=== PATIENT | female | born 1960 | race Caucasian/White ===

== ENCOUNTER 2016-12-11 06:47 | Day surgery (SDC) | payer OTHER ==
[2016-12-08 11:15] VITALS: BMI 25.0
[~2016-12-11 06:47] MED LIST: LEVOFLOXACIN 500 MG PREMIX BAG IVPB ONE
[2016-12-11] MEDS ORDERED: LEVOFLOXACIN 500 MG IVPB 100 ML IVPB ONE (07:42)
[2016-12-11] MEDS ORDERED: MIDAZOLAM HCL 2 MG/2 ML SINGLE DOSE VIAL ONE ×2 (08:13→08:18)
[2016-12-11] MEDS ORDERED: LEVOFLOXACIN 500 MG PREMIX BAG IVPB ONE (08:15)
[2016-12-11] MEDS ORDERED: ONDANSETRON 4 MG/2 ML VIAL IVPUSH PRN (08:59)
[2016-12-11] MEDS ORDERED: oxyCODONE HCL 5 MG TABLET PO PRN (08:59)
[2016-12-11] MEDS ORDERED: PROMETHAZINE HCL 25 MG/1 ML VIAL IVPUSH PRN (08:59)
[2016-12-11] MEDS ORDERED: LACTATED RINGERS SOLUTION 1,000 ML IV SCH (09:00)
--- NOTE | 2016-12-11 09:33 | OP ---
Operative Note - Note: Operative Date: 12/11/16 Pre-Operative Diagnosis: left renal stone Operation: left ESWL Findings: 5mm left mid-pole stone Post-Operative Diagnosis: Same as Pre-op Surgeon: David Betancourt Anesthesia: General Operative Report Dictated: Yes
--- NOTE | 2016-12-11 10:29 | OP ---
DATE OF OPERATION: 12/11/2016 PREOPERATIVE DIAGNOSIS: Left renal stone. POSTOPERATIVE DIAGNOSIS: Left renal stone. PROCEDURE: Left extracorporeal shock-wave lithotripsy. ATTENDING: Jatinder Hou MD ANESTHESIA: General. DESCRIPTION OF PROCEDURE: The patient was brought in the operating room and placed in supine position on the operating room table. Ultrasonography and fluoroscopy were performed. A 5-cm left midpole stone was identified. At this point, general anesthesia was administered, and the patient was given Levaquin preoperatively for surgical prophylaxis. At this point, extracorporeal shock-wave lithotripsy was performed. Then 2500 impulses at 18 J of power were administered to the stone. Excellent fragmentation on real time ultrasonography and fluoroscopy was noted. There were no complications noted. DISPOSITION: To the recovery room. JATINDER HOU M.D. [id number]
[2016-12-11] MEDS ORDERED: ONDANSETRON 4 MG/2 ML VIAL ONE (11:33)
[2016-12-11 12:01] VITALS: TEMP 98.3
[2016-12-11 12:30] VITALS: BP 123/75; PULSE 70
== END 2016-12-11 12:35 | disposition home or self-care (01) ==
LOC: JASU-SURG 06:47
PROVIDERS: ATTEND Urology
PROC: 0TF4XZZ Fragmentation in Left Kidney Pelvis, External Approach (ICD-10-PCS; principal; 2016-12-11 08:00)
DX: N20.0 Calculus of kidney (principal)
CPT/HCPCS: 94760

== ENCOUNTER 2018-06-28 20:11 | Emergency (ER) | payer OTHER ==
--- NOTE | 2018-06-28 20:33 | PDOC ---
Rapid Medical Evaluation Time Seen by Provider: 06/28/18 20:29 Medical Evaluation: Allergies Allergy/AdvReac Type Severity Reaction Status Date / Time No Known Allergies Allergy Verified 12/08/16 11:15 06/28/18 20:31 I have performed a brief in-person evaluation of this patient. The patient presents with a chief complaint of: left sided FUENTES with nausea X 3 days, not relieve with motrin Pertinent physical exam findings:non focal I have ordered the following:basic labs The patient will proceed to the ED for further evaluation. 06/28/18 20:36 Discharge Disposition - Diagnosis Headache Qualifiers: Headache type: unspecified Headache chronicity pattern: acute headache Intractability: not intractable Qualified Code(s): R51 - Headache - Referrals Referrals: Rosy Beltran [Primary Care Provider] - - Patient Instructions - Post Discharge Activity
[2018-06-28 20:35] VITALS: BMI 25.7
--- NOTE | 2018-06-28 21:25 | PDOC ---
Attending Attestation - Resident Resident Name: Maddie Del Rio - HPI HPI: 06/28/18 21:47 The patient is a year old female, with a significant past medical history of migraines and bladder infection, who presents to the emergency department with, 3 days of a left sided headache. As per patient, her headache is similar to her baseline migraines. She describes her headache as left sided radiating from her left eye to left neck with associated nausea with one episode of emesis and blurred vision in the left eye. The patient also endorses decreased sleep over the past 3 days. She reports her headache was unlike her previous headaches due to it not subsiding with Advil or Aleve. She denies recent fevers, chills, or dizziness. She denies recent diarrhea or constipation. She denies recent dysuria, frequency, urgency or hematuria. She denies recent chest pain or shortness of breath. Allergies: NKA Primary Care Physician: Dr. Beltran - Physicial Exam PE: 06/28/18 23:15 GENERAL: Awake, alert, and fully oriented, in no acute distress HEAD: No signs of trauma EYES: PERRLA, EOMI, sclera anicteric, conjunctiva clear ENT: Auricles normal inspection, hearing grossly normal, nares patent, oropharynx clear without exudates. Moist mucosa NECK: Normal ROM, supple, no lymphadenopathy, JVD, or masses LUNGS: Breath sounds equal, clear to auscultation bilaterally. No wheezes, and no crackles HEART: Regular rate and rhythm, normal S1 and S2, no murmurs, rubs or gallops ABDOMEN: Soft, nontender, normoactive bowel sounds. No guarding, no rebound. No masses EXTREMITIES: Normal range of motion, no edema. No clubbing or cyanosis. No cords, erythema, or tenderness NEUROLOGICAL: Alert, awake, appropriate. Cranial nerves 2-12 intact. No deficits to light touch and temperature in face, upper extremities and lower extremities. No motor deficits in the in face, upper extremities and lower extremities. No pronator drift. Normoreflexic in the upper and lower extremities. Normal speech. Toes are down-going bilaterally. SKIN: Warm, Dry, normal turgor, no rashes or lesions noted. <Steffanie Zarate - Last Filed: 06/28/18 23:13> - ED Attending Attestation I have performed the following: I have examined & evaluated the patient, The case was reviewed & discussed with the resident, I agree w/resident's findings & plan - Medical Decision Making 06/28/18 23:11 Pt's exam normal; labs normal; neuro exam normal; vitals normal, head CT exam normal. Pt's FUENTES resolved in the ER with treatment. She will be discharged and asked to follow with PMD. She will be referred to the neurologist director of undergraduate admissions. <Michelle Deleon - Last Filed: 06/28/18 23:17> Attestations - Attestations 06/28/18 21:47 Documentation prepared by Steffanie Zarate, acting as medical technician assistant for Michelle Deleon MD. <Steffanie Zarate - Last Filed: 06/28/18 23:13>
[2018-06-28] MEDS ORDERED: METOCLOPRAMIDE HCL INJECTION 10 MG/2 ML VIAL IVPUSH ONE (21:26)
[2018-06-28] MEDS ORDERED: ACETAMINOPHEN 1000 MG/100 ML VIAL (NON FORMULARY) IVPB ONE (21:27)
--- NOTE | 2018-06-28 21:38 | PDOC ---
History of Present Illness <Michelle Deleon - Last Filed: 06/28/18 23:13> - General History Source: Patient, Family (daughter) Exam Limitations: Language Barrier - History of Present Illness Initial Comments: 06/28/18 21:34 Pt's daughter translated Pt is a 58yo f with PMH of migraines and "bladder inflammation" presenting to ED with complaint of L sided FUENTES for 3 day. Pt says she has had similar headaches like this in the past, but the only difference is that the pain is not relieved with Aleve/Advil. Pain is intermittent, goes from the L eye to the back of the neck on the left side. She also says there is a burning sensation in her scalp. She admits to nausea, blurry eye vision, dizziness when the pain intensifies and she had one episode of emesis this AM. Pain is not worse in the morning. She denies fever, chills, chest pain, SOB, lightheadedness, abdominal pain, joint pain, neck stiffness. No recent illnesses. PMH: see hpi PSH: hysterectomy Meds: Elmiron Allergies: nkda Social: denies PCP: Ruby <Maddie Del Rio - Last Filed: 06/28/18 23:48> - General Chief Complaint: Headache Stated Complaint: HEADACHE, NAUSEA Time Seen by Provider: 06/28/18 20:29 Past History <Michelle Deleon - Last Filed: 06/28/18 23:13> - Past Medical History Anemia: No Asthma: No Cancer: No Cardiac Disorders: No CVA: No COPD: No CHF: No Dementia: No Diabetes: No GI Disorders: No Disorders: Yes (KIDNEY STONES) HTN: No Hypercholesterolemia: No Liver Disease: No Seizures: No Thyroid Disease: No - Suicide/Smoking/Psychosocial Hx Smoking History: Never smoked Have you smoked in the past 12 months: No Information on smoking cessation initiated: No Hx Alcohol Use: No Drug/Substance Use Hx: No Substance Use Type: None <Maddie Del Rio - Last Filed: 06/28/18 23:48> - Past Medical History Allergies/Adverse Reactions: Allergies Allergy/AdvReac Type Severity Reaction Status Date / Time No Known Allergies Allergy Verified 12/08/16 11:15 Home Medications: Ambulatory Orders Pentosan Polysulfate Sodium [Elmiron] 100 mg PO TID 12/08/16 Review of Systems - Review of Systems Constitutional: Yes: Symptoms Reported. No: Chills, Diaphoresis, Fever, Loss of Appetite, Weakness HEENTM: Yes: Blurred Vision (L eye). No: Tearing, Double Vision, Nose Pain, Nose Congestion, Tinnitus Respiratory: No: Cough, Shortness of Breath Cardiac (ROS): No: Chest Pain, Lightheadedness, Palpitations, Syncope ABD/GI: Yes: Nausea, Vomiting. No: Constipated, Abdominal cramping : No: Burning, Dysuria Musculoskeletal: Yes: Neck Pain. No: Back Pain, Joint Pain, Muscle Pain, Muscle Weakness Neurological: Yes: Headache, Paresthesia (in scalp). No: Numbness, Tingling, Unsteady Gait <Maddie Del Rio - Last Filed: 06/28/18 23:48> *Physical Exam - Vital Signs Last Vital Signs Temp Pulse Resp BP Pulse Ox 98.6 F 64 17 123/75 99 06/28/18 20:31 06/28/18 20:31 06/28/18 20:31 06/28/18 20:31 06/28/18 20:31 <Michelle Deleon - Last Filed: 06/28/18 23:13> - Vital Signs Last Vital Signs Temp Pulse Resp BP Pulse Ox 98.6 F 64 17 123/75 99 06/28/18 20:31 06/28/18 20:31 06/28/18 20:31 06/28/18 20:31 06/28/18 20:31 - Physical Exam General Appearance: Yes: Nourished, Appropriately Dressed. No: Apparent Distress HEENT: positive: EOMI, JESUS, Normal ENT Inspection, TMs Normal, Pharynx Normal, Hearing Grossly Normal, Other (vision 20/25 in both eyes). negative: Photophobia, Pharyngeal Erythema, Nasal Congestion, Sinus Tenderness Neck: positive: Trachea midline, Supple. negative: Decreased range of motion, Lymphadenopathy (R), Lymphadenopathy (L) Respiratory/Chest: positive: Lungs Clear, Normal Breath Sounds. negative: Crackles, Rales, Rhonchi, Wheezing Cardiovascular: positive: Regular Rhythm, Regular Rate. negative: Edema, JVD, Murmur Vascular Pulses: Carotid (R): 2+, Carotid (L): 2+, Dorsalis-Pedis (R): 2+, Doralis-Pedis (L): 2+ Gastrointestinal/Abdominal: positive: Normal Bowel Sounds, Soft. negative: Tender, Distended, Guarding, Rebound, Tenderness Musculoskeletal: positive: Normal Inspection. negative: CVA Tenderness Extremity: positive: Normal Capillary Refill Integumentary: positive: Normal Color, Dry, Warm Neurologic: positive: mortgage counselor II-XII NML intact, Fully Oriented, Alert, Normal Mood/ Affect, Normal Response, Motor Strength 5/5 Deep Tendon Reflexes: Ankle (L): 2+, Ankle (R): 2+, Knee (L): 2+, Knee (R): 2+, Bicep (L): 2+, Bicep (R): 2+ <Maddie Del Rio - Last Filed: 06/28/18 23:48> ED Treatment Course - LABORATORY CBC & Chemistry Diagram: 06/28/18 22:06 06/28/18 22:06 - ADDITIONAL ORDERS Additional order review: Laboratory Results 06/28/18 06/28/18 22:06 22:06 PTT (Actin FS) 29.7 Sodium 143 Potassium 4.6 Chloride 110 H Carbon Dioxide 25 Anion Gap 8 BUN 11 Creatinine 0.6 Creat Clearance w eGFR > 60 Random Glucose 94 Calcium 9.1 Total Bilirubin 0.3 AST 18 ALT 28 Alkaline Phosphatase 47 Total Protein 8.0 Albumin 3.9 06/28/18 22:06 RBC 4.75 MCV 85.8 MCHC 33.5 RDW 15.1 MPV 10.2 - RADIOLOGY Radiology Studies Ordered: Category Date Time Status HEAD CT WITHOUT CONTRAST [CT] Stat CT Scan 06/28/18 21:13 Completed - Medications Given in the ED: ED Medications Discontinued Medications Generic Name Dose Route Start Last Admin Trade Name Freq PRN Reason Stop Dose Admin Acetaminophen 1,000 mg 06/28/18 21:27 06/28/18 22:33 Ofirmev Injection - IVPB 06/28/18 21:28 1,000 mg ONCE ONE Administration Diphenhydramine HCl 25 mg 06/28/18 21:26 06/28/18 22:33 Benadryl Injection - IVPB 06/28/18 21:27 25 mg ONCE ONE Administration Metoclopramide HCl 10 mg 06/28/18 21:26 06/28/18 22:33 Reglan Injection - IVPUSH 06/28/18 21:27 10 mg ONCE ONE Administration <Michelle Deleon - Last Filed: 06/28/18 23:13> - LABORATORY CBC & Chemistry Diagram: 06/28/18 22:06 06/28/18 22:06 <Maddie Del Rio - Last Filed: 06/28/18 23:48> Medical Decision Making - Medical Decision Making 06/28/18 23:44 t is a 58yo f with PMH of migraines and "bladder inflammation" presenting to ED with complaint of L sided FUENTES for 3 day. DDx: SAH, GCA, mass leison, low suspicion for: -no temporal tenderness <Maddie Del Rio - Last Filed: 06/28/18 23:48> *DC/Admit/Observation/Transfer - Discharge Dispostion Decision to Admit order: No <Michelle Deleon - Last Filed: 06/28/18 23:13> <Maddie Del Rio - Last Filed: 06/28/18 23:48> Diagnosis at time of Disposition: Headache Qualifiers: Headache type: unspecified Headache chronicity pattern: acute headache Intractability: not intractable Qualified Code(s): R51 - Headache - Discharge Dispostion Disposition: HOME Condition at time of disposition: Improved - Referrals Referrals: Rosy Beltran [Primary Care Provider] - Maggy Cantu MD [Staff Physician] - - Patient Instructions Printed Discharge Instructions: Easing a Headache the Natural Way, Tension Headache Additional Instructions: You were seen here today because you were having headache. We did labs and a CT. Everything was normal. The most likely cause of your headache is migraine. Please follow up with Dr. Beltran within the next week. Please come back to the ED if: headache gets worse, you develop changes in vision, you start having more episodes of vomiting, if you develop fever or if any new concerning symptom develops. Thank you Print Language: KINYARWANDA - Post Discharge Activity
[2018-06-28] MEDS ORDERED: METOCLOPRAMIDE HCL INJECTION 10 MG/2 ML VIAL ONE (22:16)
[2018-06-28] MEDS ORDERED: ACETAMINOPHEN INJECTION 100 ML IVPB ONE (22:16)
[2018-06-28 22:17] LABS: HEMATOCRIT 40.8 % (32.4-45.2); HEMOGLOBIN 13.7 GM/dL (10.7-15.3); MCH 28.7 pg (25.7-33.7); MCHC 33.5 g/dl (32.0-36.0); MEAN CELL VOLUME 85.8 fl (80-96); MEAN PLT VOLUME 10.2 fl (7.5-11.1); PLATELET COUNT 231 K/MM3 (134-434); RBC 4.75 M/mm3 (3.60-5.2); RDW 15.1 % (11.6-15.6); WHITE BLOOD COUNT 10.8 K/mm3 (4.0-10.0)
[2018-06-28 22:38] LABS: ALBUMIN 3.9 g/dl (3.4-5.0); ALK PHOS 47 U/L (45-117); ANION GAP 8 MMOL/L (8-16); BILIRUBIN,TOTAL 0.3 mg/dL (0.2-1.0); BLOOD UREA NITROGEN 11 mg/dL (7-18); CALCIUM 9.1 mg/dL (8.5-10.1); CHLORIDE 110 mmol/L (98-107); CO2 25 mmol/L (21-32); CREATININE 0.6 mg/dL (0.55-1.02); GLUCOSE,RANDOM 94 mg/dL (74-106); POTASSIUM 4.6 mmol/L (3.5-5.1); SGOT/AST 18 U/L (15-37); SGPT/ALT 28 U/L (12-78); SODIUM 143 mmol/L (136-145)
[2018-06-28 22:44] LABS: INR 1.26 (0.83-1.09); PROTHROMBIN TIME (PATIENT) 14.2 SEC (9.7-13.0)
[2018-06-28 23:54] VITALS: BP 110/78; PULSE 89; TEMP 98.5
== END 2018-06-28 23:51 | disposition home or self-care (01) ==
LOC: JER 20:11
PROC: 3E033NZ Introduction of Analgesics, Hypnotics, Sedatives into Peripheral Vein, Percutaneous Approach (ICD-10-PCS; principal; 2018-06-28)
PROC: 3E033GC Introduction of Other Therapeutic Substance into Peripheral Vein, Percutaneous Approach (ICD-10-PCS; 2018-06-28)
PROC: 3E033GC Introduction of Other Therapeutic Substance into Peripheral Vein, Percutaneous Approach (ICD-10-PCS; 2018-06-28)
DX: R51 Headache (principal); G43.909 Migraine, unspecified, not intractable, without status migrainosus
CPT/HCPCS: 36415; 70450-TC; 80053; 85027; 85610; 85730; 96374; 96375; 99282-25; J0131

== ENCOUNTER 2019-03-06 22:28 | Emergency (ER) | payer OTHER ==
[2019-03-06] MEDS ORDERED: SODIUM CHLORIDE 0.9% 500 ML INFUS.BAG IV ONE (23:26)
[2019-03-06] MEDS ORDERED: ACETAMINOPHEN 1000 MG/100 ML VIAL (NON FORMULARY) IVPB ONE (23:26)
[2019-03-06] MEDS ORDERED: METOCLOPRAMIDE HCL INJECTION 10 MG/2 ML VIAL IVPUSH ONE (23:26)
[2019-03-06 23:41] VITALS: TEMP 100.7; BMI 43.7
--- NOTE | 2019-03-06 23:55 | PDOC ---
History of Present Illness - General Stated Complaint: BCK PAIN/HEADACHE Time Seen by Provider: 03/06/19 23:03 - History of Present Illness Initial Comments: Beth Junior is a 58yo Macedonian-speaking woman with a PMH of migraine FUENTES, chronic bladder inflammation, chronic back pain (daughter reports herniated discs and sciatica) who presents with severe bilateral low back pain that radiates down both legs. She also reports "numbness" in her legs, though she is able to still feel sensation; she is unable to clarify what she means by numbness. She says that she often has back pain, but the pain is very severe today. She was having difficulty walking, and has not been eating today secondary to the severe pain. Later in the day, she also started to develop a left-sided headache with associated nausea, episode of vomiting, and photophobia typical of her normal migraine headaches. She did not take any pain medication for either the back pain or the headache due to the nausea. Ms Shaver reports that she was seen by orthopedics for her back pain and was told that "nothing is wrong" with her back. She does not take any medication for her back pain normally, and she does not follow up with anyone regarding the pain. She also does not see a specialist for her migraine headaches, though she reports an unknown prescription medication that did help. She denies any recent fevers, though she has felt chilled today, no congestion, no cough, no constipation/diarrhea. She reports urinary urgency that has been present for "a really long time" but no dysuria. Past History - Past Medical History Allergies/Adverse Reactions: Allergies Allergy/AdvReac Type Severity Reaction Status Date / Time No Known Allergies Allergy Verified 12/08/16 11:15 Home Medications: Ambulatory Orders Pentosan Polysulfate Sodium [Elmiron] 100 mg PO TID 12/08/16 Anemia: No Asthma: No Cancer: No Cardiac Disorders: No CVA: No COPD: No CHF: No Dementia: No Diabetes: No GI Disorders: No Disorders: Yes (KIDNEY STONES) HTN: No Hypercholesterolemia: No Liver Disease: No Seizures: No Thyroid Disease: No - Suicide/Smoking/Psychosocial Hx Smoking History: Never smoked Have you smoked in the past 12 months: No Information on smoking cessation initiated: No Hx Alcohol Use: No Drug/Substance Use Hx: No Substance Use Type: None Review of Systems - Review of Systems Comments:: General: No fevers, no chills, no weight or appetite change, no malaise HEENT: No changes in vision, no changes in hearing, no congestion, no sore throat, +FUENTES CV: No chest pain, no palpitations, no LE edema Pulm: No SOB, no cough, no wheezing GI: No nausea or vomiting, no change in bowel habits, no melena : No frequency, + chronic urgency, no dysuria Musc: + chronic back pain, no joint swelling, no recent injury Skin: No rash, no lesions, no erythema Endo: No excessive thirst, no heat/cold intolerance Heme: No unusual bruising or bleeding, no swollen glands Neuro: No syncope, no numbness/tingling, no focal weakness Vasc: No claudication Psych: No recent change in mood, no SI or HI *Physical Exam - Vital Signs Last Vital Signs Temp Pulse Resp BP Pulse Ox 100.7 F H 87 20 128/79 98 03/06/19 22:35 03/06/19 22:35 03/06/19 22:35 03/06/19 22:35 03/06/19 22:35 - Physical Exam Comments: General: Uncomfortable but in no acute distress HEENT: Atraumatic, PERRL, EOMI, MMM, voice normal, normal neck ROM, no LAD Cards: RRR, no murmur appreciated Pulm: Comfortable on room air, clear to auscultation bilaterally Abd: Soft, nontender, nondistended : No CVA tenderness Back: Diffuse TTP in low thoracic/lumbar/sacral spine, lateral more than midline. No swelling, no wounds, no ecchymosis, no abrasions, no erythema, no warmth. Ext: Atraumatic. No LE edema. ROM intact. Strength 5/5 and equal bilaterally Vasc: Extremities WWP. Skin: Normal color, no rashes or lesions Neuro: A&Ox3, CN grossly intact, normal speech, sensation to light touch intact in bilateral upper and lower extremities Psych: Mood appropriate to situation ED Treatment Course - LABORATORY CBC & Chemistry Diagram: 03/07/19 00:00 03/07/19 00:00 Medical Decision Making - Medical Decision Making 03/06/19 23:54 Beth Junior is a 58yo Macedonian-speaking woman with a PMH of migraine FUENTES, chronic bladder inflammation, chronic back pain who presents with worsening of her chronic back pain w/ radiation down both legs as well as left- sided headache, nausea, vomiting, and photophobia that she typically experiences with a migraine headache. - Pain most likely due to her chronic conditions. No neurological symptoms reported nor on exam, FUENTES sympotms the same as her typical migraines. No recent back procedures, no overlying erythema or warmth suggesting infection. With h/o urinary urgency, will evaluate for UTI v pyelonephritis as a cause of her back pain - CBC, CMP, UA, UCx - 1L IVF, IV acetaminophen, reglan for symptoms 03/06/19 23:58 - Vitals checked at bedside, oral temp 100.7 - Septic workup ordered - Some concern for possible meningitis. Will evaluate for other causes of infection initially, especially UTI, but may need LP. 03/07/19 00:44 - Pt signed out to Dr Peres for remainder of ED workup. Discussed with Dr Abad. Aminah Zacarias PGY1 *DC/Admit/Observation/Transfer Diagnosis at time of Disposition: Back pain, Headache - Referrals - Patient Instructions - Post Discharge Activity
[2019-03-07] MEDS ORDERED: ACETAMINOPHEN INJECTION 100 ML IVPB ONE (00:27)
[2019-03-07] MEDS ORDERED: METOCLOPRAMIDE HCL INJECTION 10 MG/2 ML VIAL ONE (00:27)
--- NOTE | 2019-03-07 00:37 | PDOC ---
Documentation entered by Marcelle Ball SCRIBE, acting as scribe for Dereje Abad MD. Dereje Abad MD: This documentation has been prepared by the Lizzy salinas Adrianna, SCRIBE, under my direction and personally reviewed by me in its entirety. I confirm that the documentation accurately reflects all work, treatment, procedures, and medical decision making performed by me. Attending Attestation - Resident Resident Name: RellAminah - ED Attending Attestation I have performed the following: I have examined & evaluated the patient, The case was reviewed & discussed with the resident, I agree w/resident's findings & plan, Exceptions are as noted - HPI HPI: The patient is a 58 year old female, with a significant PMH of chronic back pain , migraines, and bladder infection, who presents to the emergency department today complaining of back pain and headache for one day. Patient notes she began experiencing back pain today, worse than her baseline. She notes it is present bilaterally, radiating down both of her lower extremities. Patient endorses numbness in bilateral lower extremities, but notes she can feel touch. She reports that her headache began secondary to the low back pain. Patient notes her headache is most prominent on the left-side, and reports associated photophobia, nausea, and one episode of NBNB vomit. The patient denies chest pain, shortness of breath, headache and dizziness. Denies fever, chills, nausea, vomit, diarrhea and constipation. Denies dysuria, frequency, urgency and hematuria. Allergies: NKA Past surgical history: Hysterectomy Social history: No reported 03/07/19 00:02 - Physicial Exam PE: 03/07/19 02:55 Agree with exam as documented by resident Neck supple, AOx3, NAD - Medical Decision Making 03/07/19 02:55 58F with multiple complaints, headache, back pain, paresthesias, fevers DDx includes concerning etiologies like meningitis, spinal epidural abscess, eval for fever source f/u labs, ekg, cxr, flu, esr, crp send cultures Analgesia IVF re-eval 03/07/19 03:07 No signs of meningismus, esr normal flu+ LP, MRI not indicated supportive care return instructions tamiflu f/u pcp
--- NOTE | 2019-03-07 00:40 | PDOC ---
*Physical Exam - Vital Signs Last Vital Signs Temp Pulse Resp BP Pulse Ox 100.7 F H 87 20 128/79 98 03/06/19 22:35 03/06/19 22:35 03/06/19 22:35 03/06/19 22:35 03/06/19 22:35 ED Treatment Course - LABORATORY CBC & Chemistry Diagram: 03/07/19 00:00 03/07/19 00:00 Medical Decision Making - Medical Decision Making 03/07/19 00:42 Sign out was given to me by Dr. Zacarias, pending labs/disposition. 58 year old female with PMH chronic back pain, migraine headaches presented to ED for back pain. Initial Vital Signs Temp Pulse Resp BP Pulse Ox 100.7 F H 87 20 128/79 98 03/06/19 22:35 03/06/19 22:35 03/06/19 22:35 03/06/19 22:35 03/06/19 22:35 Febrile. No tachycardia. No tachypnea. No hypertension. No hypotension. No hypoxia on room air. EKG performed at 0146: rate 84, regular rhythm, normal axis, normal intervals, no specific ST changes. 03/07/19 01:55 Pt reported 100% improvement of leg pain/numbness, and reported improvement of back pain and headache. It was discussed with the pt and family member at bedside the potential need for a lumbar puncture if no source of infection were to be found. Pt stated she does not want to have an LP performed as she is feeling better. Pt informed of the risk of meningitis with fever and back pain. Pt alert and oriented, able to make medical decisions for herself. Will evaluate for other sources of infection. CMP Sodium 138 mmol/L (136-145) 03/07/19 00:00 Potassium 3.8 mmol/L (3.5-5.1) 03/07/19 00:00 Chloride 106 mmol/L (98-107) 03/07/19 00:00 Carbon Dioxide 25 mmol/L (21-32) 03/07/19 00:00 Anion Gap 8 MMOL/L (8-16) 03/07/19 00:00 BUN 7 mg/dL (7-18) 03/07/19 00:00 Creatinine 0.6 mg/dL (0.55-1.3) 03/07/19 00:00 Est GFR (CKD-EPI)AfAm 114.82 03/07/19 00:00 Est GFR (CKD-EPI)NonAf 99.07 03/07/19 00:00 Random Glucose 114 mg/dL (74-106) H 03/07/19 00:00 Lactic Acid 1.4 mmol/L (0.4-2.0) 03/07/19 00:00 Calcium 9.2 mg/dL (8.5-10.1) 03/07/19 00:00 Total Bilirubin 0.5 mg/dL (0.2-1) 03/07/19 00:00 AST 19 U/L (15-37) 03/07/19 00:00 ALT 28 U/L (13-61) 03/07/19 00:00 Alkaline Phosphatase 55 U/L (45-117) 03/07/19 00:00 C-Reactive Protein 3.2 MG/DL (0.00-0.3) H 03/07/19 00:00 Total Protein 7.6 g/dl (6.4-8.2) 03/07/19 00:00 Albumin 4.0 g/dl (3.4-5.0) 03/07/19 00:00 No electrolyte abnormalities. No SANCHEZ. No lactic acidosis. Mild nonfasting hyperglycemia. No transaminitis. Elevated CRP. 03/07/19 02:33 Influenza A testing negative. Influenza B testing positive. 03/07/19 02:36 Pt informed of results. Symptoms <48 hours in onset. Medications ordered: Tamiflu 03/07/19 02:51 CBC WBC 16.5 K/mm3 (4.0-10.0) H 03/07/19 00:00 RBC 4.55 M/mm3 (3.60-5.2) 03/07/19 00:00 Hgb 12.9 GM/dL (10.7-15.3) 03/07/19 00:00 Hct 39.4 % (32.4-45.2) 03/07/19 00:00 MCV 86.5 fl (80-96) 03/07/19 00:00 MCH 28.3 pg (25.7-33.7) 03/07/19 00:00 MCHC 32.7 g/dl (32.0-36.0) 03/07/19 00:00 RDW 13.8 % (11.6-15.6) 03/07/19 00:00 Plt Count 145 K/MM3 (134-434) 03/07/19 00:00 MPV 11.0 fl (7.5-11.1) 03/07/19 00:00 Absolute Neuts (auto) 14.6 K/mm3 (1.5-8.0) H 03/07/19 00:00 Neutrophils % 88.7 % (42.8-82.8) H 03/07/19 00:00 Lymphocytes % 6.6 % (8-40) L 03/07/19 00:00 Monocytes % 4.4 % (3.8-10.2) 03/07/19 00:00 Eosinophils % 0.0 % (0-4.5) 03/07/19 00:00 Basophils % 0.3 % (0-2.0) 03/07/19 00:00 Nucleated RBC % 0 % (0-0) 03/07/19 00:00 ESR 17 mm/hr (0-30) 03/07/19 00:00 Leukocytosis with left shift. Normal ESR. - Epidural abscess unlikely Urine Test Results Urine Color Yellow 03/07/19 02:25 Urine Appearance Clear 03/07/19 02:25 Urine pH 8.5 (5.0-8.0) H 03/07/19 02:25 Ur Specific [place] 1.007 (1.010-1.035) L 03/07/19 02:25 Urine Protein Negative (NEGATIVE) 03/07/19 02:25 Urine Glucose (UA) Negative (NEGATIVE) 03/07/19 02:25 Urine Ketones Negative (NEGATIVE) 03/07/19 02:25 Urine Blood Negative (NEGATIVE) 03/07/19 02:25 Urine Nitrite Negative (NEGATIVE) 03/07/19 02:25 Urine Bilirubin Negative (NEGATIVE) 03/07/19 02:25 Ur Leukocyte Esterase Negative (NEGATIVE) 03/07/19 02:25 No evidence of UTI. CXR my view: sharp costophrenic angles. well demarcated heart borders. no infiltrate. no cardiomegaly. no large pneumothorax. -Pending official report Pt reported feeling better and would like to go home. Pt discharged. Discharge medications: Tamiflu 75 mg BID PO x9 capsules *DC/Admit/Observation/Transfer Diagnosis at time of Disposition: Back pain, Headache, Influenza B - Discharge Dispostion Condition at time of disposition: Improved Decision to Admit order: No - Prescriptions Prescriptions: Oseltamivir Phosphate [Tamiflu -] 75 mg PO BID #9 capsule - Referrals - Patient Instructions Printed Discharge Instructions: DI for Influenza -- Adult Additional Instructions: You were seen today for fever and back pain. You have influenza B, which is a virus. You were given the first dose of an anti-viral medication, called Tamiflu. I have sent the rest of the prescription to your pharmacy, take as advised on label. Take Tylenol over the counter for fever/pain, take as advised on label. Drink lots of fluids (like Gatorade or Pedialyte) to stay hydrated. Follow up with your primary care doctor in 1-3 days. Your care is not complete until you follow up. Return to the Emergency Department for fever>104F despite Tylenol use, fever>5 days despite Tylenol use, coughing up phlegm, chest pain, shortness of breath, vomiting or any other new, worsening or concerning symptoms. - Post Discharge Activity Forms/Work/School Notes: Back to Work, Parent(s) Back to Work Note
[2019-03-07 00:52] LABS: BASO % 0.3 % (0-2.0); HEMATOCRIT 39.4 % (32.4-45.2); HEMOGLOBIN 12.9 GM/dL (10.7-15.3); LYMPH % 6.6 % (8-40); MCH 28.3 pg (25.7-33.7); MCHC 32.7 g/dl (32.0-36.0); MEAN CELL VOLUME 86.5 fl (80-96); MONO % 4.4 % (3.8-10.2); NEUT % 88.7 % (42.8-82.8); PLATELET COUNT 145 K/MM3 (134-434); RBC 4.55 M/mm3 (3.60-5.2); RDW 13.8 % (11.6-15.6); WHITE BLOOD COUNT 16.5 K/mm3 (4.0-10.0)
[2019-03-07 01:18] LABS: BILIRUBIN,TOTAL 0.5 mg/dL (0.2-1); CALCIUM 9.2 mg/dL (8.5-10.1); CREATININE 0.6 mg/dL (0.55-1.3); POTASSIUM 3.8 mmol/L (3.5-5.1); TOT PROT 7.6 g/dl (6.4-8.2)
[2019-03-07 01:28] LABS: INR 1.13 (0.83-1.09); PROTHROMBIN TIME (PATIENT) 13.4 SEC (9.7-13.0)
[2019-03-07 01:31] LABS: ACTIVATED PTT 29.6 SECONDS (25.2-36.5)
[2019-03-07 02:34] LABS: PH,URINE 8.5 (5.0-8.0); URINE APPEARANCE CLEAR; URINE BILIRUBIN NEGATIVE (NEGATIVE); URINE COLOR YELLOW; URINE GLUCOSE (UA) NEGATIVE (NEGATIVE); URINE KETONE NEGATIVE (NEGATIVE); URINE LEUK ESTERASE NEGATIVE (NEGATIVE); URINE NITRITE NEGATIVE (NEGATIVE); URINE PROTEIN NEGATIVE (NEGATIVE); URINE UROBILINOGEN 0.2 mg/dL (0.2-1.0)
[2019-03-07] MEDS ORDERED: OSELTAMIVIR PHOSPHATE 75 MG CAPSULE PO ONE (02:36)
[2019-03-07] MEDS ORDERED: OSELTAMIVIR PHOSPHATE 75 MG CAPSULE ONE (02:40)
[2019-03-07 03:53] VITALS: BP 125/83; PULSE 80
--- NOTE | 2019-03-07 16:09 | EKG ---
Test Reason : Blood Pressure : / mmHG Vent. Rate : 084 BPM Atrial Rate : 084 BPM P-R Int : 146 ms QRS Dur : 074 ms QT Int : 378 ms P-R-T Axes : 076 034 059 degrees QTc Int : 446 ms NORMAL SINUS RHYTHM POSSIBLE LEFT ATRIAL ENLARGEMENT BORDERLINE ECG NO PREVIOUS ECGS AVAILABLE Confirmed by FIFI CARTAGENA, TILA ([id number]) on 03/07/2019 4:09:22 PM Referred By: Confirmed By:TILA CALIX MD
== END 2019-03-07 03:50 | disposition home or self-care (01) ==
LOC: JER 22:28
PROC: 3E033NZ Introduction of Analgesics, Hypnotics, Sedatives into Peripheral Vein, Percutaneous Approach (ICD-10-PCS; principal; 2019-03-06)
PROC: 3E033GC Introduction of Other Therapeutic Substance into Peripheral Vein, Percutaneous Approach (ICD-10-PCS; 2019-03-06)
DX: J10.1 Influenza due to other identified influenza virus with other respiratory manifestations (principal); R51 Headache; M54.5 Low back pain; M54.6 Pain in thoracic spine
CPT/HCPCS: 36415; 71045-TC-FY; 80053; 81003; 83605; 85025; 85610; 85651; 85730; 86140; 87040; 87086; 87804; 93005; 93010; 99283-25; J0131

== ENCOUNTER 2021-02-28 04:51 | Day surgery (SDC) | payer OTHER ==
[2021-02-25 08:15] VITALS: BMI 23.0
[2021-02-28] MEDS ORDERED: ONDANSETRON 4 MG/2 ML VIAL IVPUSH PRN (12:11)
[2021-02-28] MEDS ORDERED: ACETAMINOPHEN 325 MG TABLET (FP) PO PRN (12:11)
[2021-02-28] MEDS ORDERED: oxyCODONE HCL 5 MG TABLET PO PRN (12:11)
[2021-02-28] MEDS ORDERED: LACTATED RINGERS SOLUTION 1,000 ML IV SCH (12:15)
[2021-02-28] MEDS ORDERED: PROPOFOL 20 ML ONE (13:10)
[2021-02-28] MEDS ORDERED: MIDAZOLAM HCL 2 MG/2 ML SINGLE DOSE VIAL ONE (13:10)
[2021-02-28 16:06] VITALS: BP 128/69; PULSE 75; TEMP 97.2
== END 2021-02-28 15:05 | disposition home or self-care (01) ==
LOC: JASU-SURG 04:51
PROVIDERS: ATTEND Urology
PROC: 0TF3XZZ Fragmentation in Right Kidney Pelvis, External Approach (ICD-10-PCS; principal; 2021-02-28 11:30)
DX: N20.0 Calculus of kidney (principal)

== ENCOUNTER 2024-06-07 10:33 | Observation (INO) | payer MEDICARE, OTHER ==
[2024-06-07 11:20] VITALS: BMI 22.4
[2024-06-07 11:25] LABS: BASO % 0.7 % (0-2.0); EOS % 2.2 % (0-4.5); HEMATOCRIT 38.8 % (32.4-45.2); MCH 29.2 pg (25.7-33.7); MCHC 33.4 g/dl (32.0-36.0); MEAN CELL VOLUME 87.6 fl (80-96); MEAN PLT VOLUME 9.7 fl (7.5-11.1); MONO % 9.5 % (3.8-10.2); NEUT % 44.6 % (42.8-82.8); PLATELET COUNT 183 10^3/uL (134-434); RBC 4.44 M/mm3 (3.60-5.2); RDW 14.1 % (11.6-15.6); WHITE BLOOD COUNT 5.6 K/mm3 (4.0-10.0)
[2024-06-07 11:33] LABS: INR 1.11 (0.83-1.09); PROTHROMBIN TIME (PATIENT) 12.5 SEC (9.7-13.0)
[2024-06-07 11:35] LABS: ACTIVATED PTT 32.2 SECONDS (25.2-36.5)
[2024-06-07 11:48] LABS: PH,URINE 7.5 (5.0-8.0); URINE APPEARANCE CLEAR; URINE BILIRUBIN NEGATIVE (NEGATIVE); URINE COLOR YELLOW; URINE GLUCOSE (UA) NEGATIVE (NEGATIVE); URINE KETONE NEGATIVE (NEGATIVE); URINE LEUK ESTERASE NEGATIVE (NEGATIVE); URINE NITRITE NEGATIVE (NEGATIVE); URINE PROTEIN NEGATIVE (NEGATIVE); URINE UROBILINOGEN 0.2 mg/dL (0.2-1.0)
[2024-06-07 11:49] LABS: CHLORIDE 108 mmol/L (98-107); POTASSIUM 4.4 mmol/L (3.5-5.1); SODIUM 141 mmol/L (136-145)
[2024-06-07 11:50] LABS: CALCIUM 9.2 mg/dL (8.5-10.1)
[2024-06-07 11:52] LABS: ALBUMIN 3.8 g/dl (3.4-5.0); ANION GAP 5 mmol/L (4-13); BLOOD UREA NITROGEN 7.4 mg/dL (7-18); CO2 28 mmol/L (21-32); GLUCOSE,RANDOM 89 mg/dL (74-106)
[2024-06-07] MEDS: SODIUM CHLORIDE 1,000 ML IV SCH (11:52)
[2024-06-07 11:54] LABS: CREATININE 0.6 mg/dL (0.55-1.3); SGOT/AST 22 U/L (15-37); SGPT/ALT 30 U/L (13-61)
[2024-06-07 11:55] LABS: CHOLESTEROL 163 mg/dL (50-200)
[2024-06-07 11:56] LABS: TOT PROT 7.4 g/dl (6.4-8.2)
[2024-06-07 11:57] LABS: BILIRUBIN,TOTAL 0.4 mg/dL (0.2-1); LDL CHOLESTEROL (ONLY SJRH) 85 mg/dL (5-100)
[2024-06-07 11:58] LABS: ALK PHOS 51 U/L (45-117); HDL CHOLESTEROL 66 mg/dL (40-60)
[2024-06-07 16:44] VITALS: RESP 18
[2024-06-07] MEDS: HEPARIN NA (PORCINE) 5,000 UNITS/ML 1ML VIAL SQ SCH (21:24)
[2024-06-07] MEDS: ROSUVASTATIN CA 5 MG TABLET PO SCH (22:16)
[2024-06-08 07:42] LABS: BASO % 0.3 % (0-2.0); EOS % 2.3 % (0-4.5); HEMATOCRIT 36.4 % (32.4-45.2); HEMOGLOBIN 12.3 GM/dL (10.7-15.3); LYMPH % 45.8 % (8-40); MCH 29.2 pg (25.7-33.7); MCHC 33.7 g/dl (32.0-36.0); MEAN CELL VOLUME 86.7 fl (80-96); MEAN PLT VOLUME 10.3 fl (7.5-11.1); MONO % 9.6 % (3.8-10.2); PLATELET COUNT 178 10^3/uL (134-434); RDW 14.1 % (11.6-15.6); WHITE BLOOD COUNT 6.3 K/mm3 (4.0-10.0)
[2024-06-08 08:07] LABS: POTASSIUM 4.8 mmol/L (3.5-5.1)
[2024-06-08 08:26] LABS: BLOOD UREA NITROGEN 7.2 mg/dL (7-18); CALCIUM 8.8 mg/dL (8.5-10.1)
[2024-06-08 08:29] LABS: CREATININE 0.6 mg/dL (0.55-1.3)
[2024-06-08] MEDS: ASPIRIN COATED 81 MG TABLET.EC PO SCH (11:00)
[2024-06-08 18:50] VITALS: BP 110/67; PULSE 59; TEMP 98.6
== END 2024-06-08 18:40 | disposition home or self-care (01) ==
LOC: JER 10:33 → JERBED 14:48 → J4S 18:42
PROVIDERS: ADMIT Internal Medicine; ATTEND Internal Medicine
PROC: 3E023GC Introduction of Other Therapeutic Substance into Muscle, Percutaneous Approach (ICD-10-PCS; principal; 2024-06-07)
PROC: 3E0337Z Introduction of Electrolytic and Water Balance Substance into Peripheral Vein, Percutaneous Approach (ICD-10-PCS; 2024-06-07)
DX: G45.9 Transient cerebral ischemic attack, unspecified (principal); E78.5 Hyperlipidemia, unspecified; G43.909 Migraine, unspecified, not intractable, without status migrainosus; R20.2 Paresthesia of skin; R20.0 Anesthesia of skin; Z90.79 Acquired absence of other genital organ(s)
CPT/HCPCS: 36415; 70450-TC; 70551-TC; 80048; 80053; 80061; 81003; 82550; 83036; 84484; 85025; 85610; 85730; 86850; 86900; 86901; 93005; 93010; 93880-TC; 96360; 96372; 99285-25; G0378; J1644